=== PATIENT | male | born 1990 | race African-American/Black ===

== ENCOUNTER → 2017-07-29 | Outpatient (CLI) | payer OTHER ==
[~2017-07-29] MED LIST: PROHANCE 279.3MG/ML 15ML VIAL (A9576) As Ordered
== END ==
LOC: M RAD 09:25
DX: E03.9 Hypothyroidism, unspecified (principal); E27.40 Unspecified adrenocortical insufficiency; E29.1 Testicular hypofunction; R93.0 Abnormal findings on diagnostic imaging of skull and head, not elsewhere classified
CPT/HCPCS: A9576